=== PATIENT | male | born 1950 ===

== ENCOUNTER 2022-12-07 17:30 | Outpatient (CLI) | payer MEDICARE ==
--- NOTE | 2022-12-08 10:40 | Ultrasound Report ---
PROCEDURE: Chest INDICATIONS: MASS OF SKIN ON BACK TECHNIQUE: Real-time scanning was performed of the patient indicated area of concern at the [facility], with image documentation. COMPARISON: None. FINDINGS: At the patient indicated area of clinical concern, the soft tissues of the upper mid back, an encapsu lated avascular oblong lesion with fine linear striations is present measuring 7.9 x 2.6 x 8.1 cm. It is 8 mm deep to the skin surface. IMPRESSION: A 8.1 cm mass is present in the soft tissues of the upper back corresponding to the stacey ent indicated area of concern. The appearance is suggestive of a lipoma. Clinical follow-up is recomm ended and if the finding increases in size or the patient develops symptoms such as pain, a repeat ex amination or MRI could be obtained. Reviewed by: Kendall Ruiz MD on 12/08/2022 10:39 AM PDT Approved by: Kendall Ruiz MD on 12/08/2022 10:39 AM PDT Station ID: [id number]
== END 2022-12-07 17:31 | disposition home or self-care (01) ==
LOC: DI 17:30
PROVIDERS: ATTEND Nurse Practitioner Family
DX: R22.2 Localized swelling, mass and lump, trunk (principal)

== ENCOUNTER 2023-11-13 08:10 | Outpatient (CLI) | payer MEDICARE ==
--- NOTE | 2023-11-13 09:23 | Ultrasound Report ---
PROCEDURE: Aorta Screening INDICATIONS: EX SMOKER TECHNIQUE: Real time scanning was performed of the aorta and iliac arteries, with image documentatio n. COMPARISON: None. FINDINGS: Aorta: Proximal aortic diameter measures 2.7 x 2.6 cm. Mid-aorta measures 2.0 x 2.0 cm. Distal aor tic diameter is 1.7 x 1.6 cm. Iliac arteries: Right common iliac artery measures 1.2 x 1.2 cm. Left common iliac artery measures 1.1 x 1.1 cm. IMPRESSION: Proximal abdominal aortoectasia. Continued surveillance in 5 years recommended. Recommended intervals for follow-up imaging of ectatic aortas and abdominal aortic aneurysms, per ACR consensus guidelines: 2.5-2.9 cm: 5 years 3.0-3.4 cm: 3 years 3.5-3.9 cm: 2 years 4.0-4.4 cm: 1 year 4.5-4.9 cm: 6 months + endovascular referral 5.0-5.5 cm: 3-6 months + endovascular referral Reviewed by: Arlene Camacho MD on 11/13/2023 9:22 AM PDT Approved by: Arlene Camacho MD on 11/13/2023 9:22 AM PDT Station ID: [id number]
== END 2023-11-13 08:11 | disposition home or self-care (01) ==
LOC: DI 08:10
PROVIDERS: ATTEND Registered Nurse
DX: Z13.6 Encounter for screening for cardiovascular disorders (principal); I77.811 Abdominal aortic ectasia; Z87.891 Personal history of nicotine dependence

== ENCOUNTER 2024-04-11 16:05 | Emergency (ER) | payer OTHER, MEDICARE ==
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
[2024-04-11] MEDS: IBUPROFEN 600 MG TABLET PO STA (16:47)
[2024-04-11 17:15] VITALS: BP 128/66; O2SAT 99
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
== END 2024-04-11 17:13 | disposition home or self-care (01) ==
LOC: ED 16:05
DX: S60.221A Contusion of right hand, initial encounter (principal); V43.52XA Car driver injured in collision with other type car in traffic accident, initial encounter; Y92.488 Other paved roadways as the place of occurrence of the external cause; I10 Essential (primary) hypertension
CPT/HCPCS: 73130; 99283; A9270